=== PATIENT | female | born 2000 ===

== ENCOUNTER 2018-04-22 20:07 | Emergency (ER) | payer MEDICAID, SELFPAY ==
[2018-04-22 20:15] VITALS: BP 124/83; PULSE 100; RESP 16; TEMP 37.2; O2SAT 98
--- NOTE | 2018-04-22 20:24 | DI.RPTCT_ITS ---
SYMPTOM/DIAGNOSIS: LT FLANK PAIN RENAL COLIC CT: CT scan of the abdomen and pelvis was performed according to the renal colic protocol. The visualized lung bases show no acute abnormalities. The unenhanced liver, spleen, pancreas and adrenal glands are unremarkable. There are stones seen within the gallbladder. No biliary ductal dilatation. The right kidney shows no evidence of nephrolithiasis or hydronephrosis. There does appear to be scarring of the superior aspect of the left kidney. There is an ovoid soft tissue mass like region attached to the superior pole of the left kidney. This may represent an atrophic upper pole. A post contrast CT scan should be considered for further evaluation. No nephrolithiasis or hydronephrosis is seen. The urinary bladder is intact. The patient has a ferreira catheter. There is air seen within the dependent portion of the urinary bladder likely reflecting recent catheterization. The reproductive organs are unremarkable. The bowel shows no evidence of obstruction or inflammation. No findings to suggest an acute appendicitis are present. No abdominal or pelvic ascites, adenopathy or pneumoperitoneum is present. Note is made of a fat containing umbilical hernia. The bones are intact. IMPRESSION: 1. No acute abnormality. No evidence of hydronephrosis or nephrolithiasis. 2. Curvilinear soft tissue area attached to the superior pole of the left kidney. This may reflect scarring of the superior pole of the kidney. A CT scan with contrast may be considered for further evaluation of the left kidney.
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
[2018-04-22 20:49] LABS: Abs Immature Grans 0.03 k/cumm (0.0-0.09); Absolute Basophil Count 0.03 k/cumm (0.0-0.2); Absolute Eosinophil Count 0.07 k/cumm (0.0-0.7); Absolute Lymphocyte Count 2.47 k/cumm (1.2-3.4); Absolute Neutrophil Count 5.85 k/cumm (1.2-6.7); Basophils % 0.3; Eosinophils % 0.8; HCT 39.5 % (36.0-46.0); HGB 12.7 g/dL (12.0-15.5); Immature Grans % 0.3; Lymphocytes % 27.3; Mean Corp. HGB Concentration 32.2 g/dL (32.0-36.0); Mean Corpuscular Volume 80.8 fL (80-95); Mean Platelet Volume 10.1 fL (8.0-11.0); Monocytes % 6.6; Neutrophils % 64.7; Platelet Count 297 x1000/uL (130-400); RBC 4.89 m/cumm (4.00-5.20); White Blood Cell Count 9.05 k/cumm (4.4-10.8)
[2018-04-22] MEDS: MORPHine 10 MG/ML VIAL 4 MG IVP (20:55)
[2018-04-22] MEDS: Ondansetron 4 MG/2 ML VIAL IVP (20:55)
[2018-04-22 20:57] LABS: Bilirubin Negative (Negative); Blood Trace-lysed (Negative); Clarity Clear; Glucose Negative (Negative); Ketones Negative (Negative); Leukocyte Esterase Negative (Negative); Nitrite Negative (Negative); Specific Gravity 1.015 (1.005-1.025); Urobilinogen 0.2 EU/dL (Up TO 0.2); pH 7.5 (5-8)
[2018-04-22 21:11] LABS: ALT 18 U/L (12-78); AST 17 U/L (15-37); Alkaline Phosphatase 114 U/L (46-116); Anion Gap 8.9 mmol/L (3-11); BUN 9 mg/dL (7-18); Bilirubin, Total 0.3 mg/dL (0.2-1.0); CO2 25.1 mmol/L (21.0-32.0); CREATININE 0.93 mg/dL (0.55-1.02); Calcium 9.2 mg/dL (8.5-10.1); Chloride 105 mmol/L (98-107); Glucose 94 mg/dL (70-100); Potassium 3.6 mmol/L (3.5-5.1); Sodium 139 mmol/L (136-145); Total Protein 8.6 g/dL (6.4-8.2)
[2018-04-22 21:11] LABS: Epithelial Cells Few HPF (Negative); Other Cells Mod Transitional (Negative); WBC 0-2 HPF (0-5)
[2018-04-22 21:12] LABS: Bacteria Rare HPF (Negative); C & S Indicated? No; Casts Negative LPF (Negative); Crystals Negative HPF (Negative); Mucus Moderate (Negative)
[2018-04-22] MEDS: MORPHine 4 MG/ML SYR IVP (21:42)
--- NOTE | 2018-04-22 21:48 | DI.VRAD_ITS ---
EXAM: CT Abdomen and Pelvis Without Intravenous Contrast CLINICAL HISTORY: 18 years old, female; Pain; Other: Left flank pain. ; Patient HX: HX of kidney problems TECHNIQUE: Axial computed tomography images of the abdomen and pelvis without intravenous contrast. All CT scans at this facility use at least one of these dose optimization techniques: automated exposure control; mA and/or kV adjustment per patient size (includes targeted exams where dose is matched to clinical indication); or iterative reconstruction. Coronal and sagittal reformatted images were created and reviewed. COMPARISON: No relevant prior studies available. FINDINGS: Lung bases: No focal pathology. No mass. No consolidation. ABDOMEN: Liver: No focal pathology. Gallbladder and bile ducts: Cholelithiasis. No pericholecystic edema. No ductal dilation. Pancreas: No focal pathology. No ductal dilation. Spleen: No focal pathology. No splenomegaly. Adrenals: No focal pathology. No mass. Kidneys and ureters: No hydronephrosis or nephrolithiasis bilaterally. Small focus of chronic appearing scarring in the left kidney. 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 Stomach and bowel: No acute pathology. No obstruction. No mucosal thickening. PELVIS: Appendix: No findings to suggest acute appendicitis. Bladder: Goldman catheter in a decompressed urinary bladder. No stones. Reproductive: Unremarkable as visualized. ABDOMEN and PELVIS: Intraperitoneal space: Small cul-de-sac free fluid within physiologic limits. Bones/joints: No acute fracture. No dislocation. Soft tissues: Small fat-containing umbilical hernia. Vasculature: No focal pathology. No abdominal aortic aneurysm. Lymph nodes: No enlarged lymph nodes. IMPRESSION: 1. No acute findings. 2. No hydronephrosis or nephrolithiasis bilaterally. 3. Incidental findings as described. Dictated and Authenticated by: Migdalia Rosenberg MD. Ordering:SEJAL NI MD
[2018-04-22] MEDS: metroNIDAZOLE 500 MG TAB PO (22:13)
[2018-04-22] MEDS: Doxycycline Hyclate 100 MG CAP PO (22:13)
[2018-04-22] MEDS: cefTRIAXone 250 MG VIAL IM (22:14)
[2018-04-22 22:32] VITALS: BP 129/84; PULSE 98; RESP 18; TEMP 37.1; O2SAT 98
--- NOTE | 2018-04-23 10:38 | PDOC.ERCMPRO ---
Care Management Progress Note 04/23-Raffy needed f/u appt with urology and [facility]. Dr. Link stated that patient ended up going over to [facility]. This CM called Raffy and had to leave a voice mail. Requested call back to see if patient needed f/u here or if she was scheduling her f/u in [place].
[2018-04-26 15:04] LABS: Chlamydia Result Negative; GC Result Negative; Specimen Description CERVIX
== END 2018-04-22 22:32 | disposition home or self-care (01) ==
PROVIDERS: Nurse Practitioner Family; Emergency Provider Student in an Organized Health Care Education/Training Program
DX: R33.9 Retention of urine, unspecified (principal); N76.0 Acute vaginitis; B96.89 Other specified bacterial agents as the cause of diseases classified elsewhere; Z90.5 Acquired absence of kidney; Z87.440 Personal history of urinary (tract) infections
CPT/HCPCS: 36415; 51702; 80053; 81025; 87491; 87591; 96372; 96374; 96375; 96376; 99284; 74176; 81003; 81015; 85025; 85610; 85730; 87480; 87510; 87660; J0696; J2270; J2405